=== PATIENT | female | born 1965 | race Caucasian/White ===

== ENCOUNTER → 2016-11-01 | Outpatient (CLI) | payer BC ==
[2015-12-18 08:41] VITALS: BP 112/72
[~2016-11-01] MED LIST: LYSI500T PO; MULT-208 PO; VITA1000 PO
--- NOTE | 2016-11-01 16:46 | KCIC ---
PROCEDURE MR of the left shoulder HISTORY Left shoulder pain for 1 month. No known injury. COMPARISON None TECHNIQUE Routine multiplanar sequences are obtained. FINDINGS The acromioclavicular joint is mildly degenerative. 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 The rotator cuff demonstrates some increased signal and thickening compatible with tendinosis. Trace subdeltoid bursal fluid. Trace glenohumeral joint fluid. There is a tear of the superior labrum. No acute articular cartilage defect. Biceps tendinosis, without rupture or dislocation. No bone lesion or acute fracture. No acute soft tissue injury. IMPRESSION 1. Rotator cuff tendinosis without evidence of a tear. 2. Superior labral tear. 3. Biceps tendinosis. Electronically signed by: Jayro Florence MD (Nov 01, 2016 16:44:37)
== END | disposition home or self-care (01) ==
LOC: KCIC MRI 15:06
PROVIDERS: ATTEND Family Medicine
DX: S43.432A Superior glenoid labrum lesion of left shoulder, initial encounter (principal); X58.XXXA Exposure to other specified factors, initial encounter; Y93.89 Activity, other specified; Y92.89 Other specified places as the place of occurrence of the external cause; Y99.8 Other external cause status
CPT/HCPCS: 73221

== ENCOUNTER → 2019-12-24 | Outpatient (CLI) | payer BC ==
[2015-12-18 08:41] VITALS: BP 112/72
[~2019-12-24] MED LIST changes: +IBUP-1027 PO; -LYSI500T PO; +LYSI500T8 PO; +VITA400T6 PO
--- NOTE | 2019-12-24 14:05 | EKG ---
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
[2019-12-24 14:06] LABS: BASO # 0.1 x10^3/uL (0.0-0.2); BASO % 1 % (0-3); EOS # 0.2 x10^3/uL (0.0-0.7); EOS % 3 % (0-3); HEMATOCRIT 40.5 % (36.0-47.0); HEMOGLOBIN 14.2 g/dL (12.0-15.5); LYMPH # 1.8 x10^3/uL (1.0-4.8); LYMPH % 24 % (24-48); MEAN CORPUSCULAR HEMOGLOBIN 29 pg (25-35); MEAN CORPUSCULAR HGB CONC 35 g/dL (31-37); MEAN CORPUSCULAR VOLUME 83 fL (79-100); MONO # 0.5 x10^3/uL (0.0-1.1); MONO % 7 % (0-9); NEUT % 65 % (31-73); PLATELET COUNT 278 x10^3/uL (140-400); RED BLOOD COUNT 4.87 x10^6/uL (3.50-5.40); RED CELL DISTRIBUTION WIDTH 13.7 % (11.5-14.5); WHITE BLOOD COUNT 7.6 x10^3/uL (4.0-11.0)
[2019-12-24 14:15] LABS: PROTHROMBIN TIME PATIENT 13.7 SEC (11.7-14.0)
[2019-12-24 14:20] LABS: C-REACTIVE PROTEIN 3.1 mg/L (0-3.3); CALCIUM 8.9 mg/dL (8.5-10.1); CREATININE 0.9 mg/dL (0.6-1.0); POTASSIUM 4.2 mmol/L (3.5-5.1)
--- NOTE | 2019-12-24 15:34 | RAD ---
CHEST PA LATERAL History: Reason: pre-op evaluation / Spl. Instructions: / History: Comparison: 12/08/2015 2 view chest x-ray exam. Findings: Frontal and lateral views of the chest were obtained. The cardiomediastinal silhouette is normal. Pulmonary vasculature is normal. The lungs are clear. No pleural effusion or pneumothorax is seen. There is no acute bone abnormality. Lumbar spine fusion braydon and screws are only partially seen for purposes of this exam. Degenerative disc space narrowing of the upper lumbar spine is seen. IMPRESSION: No acute cardiopulmonary process. Electronically signed by: Telly Montano MD (12/24/2019 3:31 PM) [id number]
[2019-12-25 02:08] LABS: HEMOGLOBIN A1C 5.3 % (4.8-5.6)
== END | disposition home or self-care (01) ==
LOC: SURGPAT 12:52
PROVIDERS: ATTEND Orthopaedic Surgery Sports Medicine
DX: Z01.818 Encounter for other preprocedural examination (principal); M17.12 Unilateral primary osteoarthritis, left knee; M43.26 Fusion of spine, lumbar region; M51.36 Other intervertebral disc degeneration, lumbar region; M48.061 Spinal stenosis, lumbar region without neurogenic claudication; I44.4 Left anterior fascicular block
CPT/HCPCS: 36415; 71046; 80048; 82040; 82306; 83036; 85025; 85610; 85730; 86140; 87641; 93005

== ENCOUNTER → 2020-01-09 | Outpatient (CLI) | payer BC ==
[2015-12-18 08:41] VITALS: BP 112/72
== END | disposition home or self-care (01) ==
LOC: LAB 13:34
PROVIDERS: ATTEND Orthopaedic Surgery Sports Medicine
DX: Z11.59 Encounter for screening for other viral diseases (principal)
CPT/HCPCS: U0003-CS

== ENCOUNTER 2020-01-13 06:05 | Observation (INO) | payer BC ==
[2020-01-13] VITALS (8 sets, daily range): BP systolic 109–153; BP diastolic 50–81
[~2020-01-13] VITALS: Ht 160 cm; Wt 100.2 kg
[~2020-01-13 06:05] MED LIST changes: +ACETAMINOPHEN 500 MG TABLET PO PRN; +MELOXICAM 7.5 MG TABLET PO PRN; +SCOPOLAMINE 1.5MG PATCH. TD PRN; +TRANEXAMIC ACID 1,000 MG in IV NS 50ML -- 1ST BAG INJ ONE; +TV=100ml MORPHINE 5 MG, KETOROLAC 30 MG, ROPIVacaine 0.5% PF 60 ML, EPINEPH... INT ART ONE
[2020-01-13] MEDS ORDERED: ceFAZolin SODIUM 3 GM in IV DEXTROSE 5% 100ML 100 ML IV PRN (06:30)
[2020-01-13] MEDS ORDERED: IV NORMAL SALINE 1000ML BAG 1,000 ML IV SCH (06:51)
[2020-01-13] MEDS ORDERED: LIDOCAINE 1% PF 2 ML VIAL. ID PRN (07:00)
[2020-01-13] MEDS ORDERED: 0.9 % SODIUM CHLORIDE 10 ML DISP.SYRIN. IV PRN (07:00)
[2020-01-13] MEDS ORDERED: fentaNYL PF VIAL 100 MCG/2 ML VIAL IV PRN ×2 (07:00)
[2020-01-13] MEDS ORDERED: CALCIUM CARBONATE 500 MG TAB.CHEW PO PRN (07:00)
[2020-01-13] MEDS ORDERED: MORPHINE SULFATE 2 MG/ML VIAL. IVP PRN (07:00)
[2020-01-13] MEDS ORDERED: PROCHLORPERAZINE 5 MG TABLET. PO PRN (07:00)
[2020-01-13] MEDS ORDERED: diphenhydrAMINE 50 MG/ML VIAL IVP PRN (07:00)
[2020-01-13] MEDS ORDERED: DEXTROSE 50% 25 GM / 50ML DISP.SYRIN. IV PRN (07:00)
[2020-01-13] MEDS ORDERED: METOCLOPRAMIDE HCL 10 MG/2 ML VIAL. IVP PRN (07:00)
[2020-01-13] MEDS ORDERED: PROCHLORPERAZINE 10 MG/2 ML VIAL. IV PRN (07:00)
[2020-01-13] MEDS ORDERED: fentaNYL PF VIAL 100 MCG/2 ML VIAL IVP PRN (07:00)
[2020-01-13] MEDS ORDERED: ONDANSETRON PF 4 MG/2 ML VIAL. IV PRN (07:00)
[2020-01-13] MEDS ORDERED: MORPHINE SULFATE 2 MG/ML VIAL. IV PRN (07:00)
[2020-01-13] MEDS ORDERED: IV RINGERS,LACTATED 1000ML 1,000 ML IV SCH (07:00)
[2020-01-13] MEDS ORDERED: HYDROmorphone 2 MG/ML VIAL IV PRN (07:00)
[2020-01-13] MEDS ORDERED: ZOLPIDEM 5 MG TABLET. PO PRN (07:00)
[2020-01-13] MEDS ORDERED: PROPOFOL 10 MG/ML (20ML) VIAL. IV ONE ×2 (07:08→08:04)
[2020-01-13] MEDS ORDERED: LIDOCAINE 2% PF 5 ML VIAL. ONE (07:08)
[2020-01-13 07:13] LABS: PROTHROMBIN TIME PATIENT 13.6 SEC (11.7-14.0)
[2020-01-13] MEDS ORDERED: fentaNYL PF VIAL 250 MCG/5 ML VIAL ONE (07:20)
[2020-01-13] MEDS ORDERED: MIDAZOLAM HCL/PF 2 MG/2 ML VIAL. ONE (07:20)
[2020-01-13] MEDS ORDERED: VANCOMYCIN 1GM IVPB FOR OMNI 250 ML ONE (07:22)
[2020-01-13] MEDS ORDERED: VANCOMYCIN 1GM IVPB FOR OMNI 250 ML IV PRN (07:30)
[2020-01-13] MEDS ORDERED: SCOPOLAMINE 1.5MG PATCH. TD ONE (07:30)
[2020-01-13] MEDS ORDERED: PHENYLEPHRINE in 0.9% NACL PF 1 MG/10 ML SYRINGE. IV ONE (07:41)
[2020-01-13] MEDS ORDERED: TRANEXAMIC ACID 1,000 MG in IV NS 50ML -- 2ND BAG INJ ONE (08:00)
[2020-01-13] MEDS: FERROUS SULFATE 325 MG TABLET. PO SCH ×2 (08:00→17:15)
[2020-01-13] MEDS ORDERED: DEXAMETHASONE SOD PHOS 4 MG/ML VIAL ONE (08:04)
[2020-01-13] MEDS ORDERED: ONDANSETRON PF 4 MG/2 ML VIAL. ONE (08:04)
[2020-01-13] MEDS ORDERED: SEVOFLURANE > 120 MINUTES. IH ONE (08:04)
[2020-01-13] MEDS: MULTIVITAMIN with MINERAL TABLET. PO SCH (09:00)
[2020-01-13] MEDS: SENNOSIDES/DOCUSATE 8.6/50MG TABLET. PO SCH (09:00)
--- NOTE | 2020-01-13 10:20 | PDOC4 ---
Operative Note Operative Note Date of procedure: 01/13/2020 Surgeon: aDnie Meza Industrial Refrigeration Mechanic: Jaspreet Serrano, certified medicine aide Preoperative diagnosis: Primary left knee degenerative joint disease Postoperative diagnosis: Same Procedure performed: 1. Robotic assisted left total knee arthroplasty 2. Removal of deep hardware Anesthesia: General Findings: Advanced degenerative joint disease of left knee Complications: none Tourniquet time: 78min Blood loss: 125mL Components inserted: [employer] Oxinium size 4 left journey II femur with a 23 mm biconvex patella, 9 mm articular insert, size 3 left journey nonporous tibial baseplate Reason for procedure: Patient is a very pleasant female who have been following for quite some time of my outpatient clinic. She had tried and failed an exercise program, working on weight loss, intra-articular injections, and none of these really helped her pain. She has also tried anti-inflammatories. Because of her progressive pain interfering with her activities, we discussed proceeding with a robotic left total knee arthroplasty and she wished to pro ceed. Description of procedure: Patient was greeted in the preoperative area by myself or the correct extremity was verified and marked. She was taken to the operative suite and antibiotics were started prior to this. Once in the operating room, she was transferred gently supine to the operating room table and secured to the bed with all pressure points padded and had successful induction of a general anesthetic. My examination under anesthesia demonstrated range of motion 0 to 130 degrees, the knee was stable to varus and valgus in extension and 30 degrees of flexion. We applied a nonsterile tourniquet to her left upper thigh. A padded bump was placed laterally at her hip and a padded foot rest was secured to the bed to maintain her knee at 90 degrees passively. We then proceeded prep and drape left lower extremity in her usual sterile fashion including an Ioban sandwich. We then conducted our standard preoperative timeout. I then rafael a line for my planned skin incision, exsanguinated the extremity with an Esmarch and insufflated tourniquet to 250 mmHg. After this, the skin was incised with a scalpel, incorporating her prior incision, and I dissected subcutaneous tissue to expose the extensor mechanism with electrocautery, cauterizing bleeders as they were encountered. After this, I palpated for her borders of her patella as well as tibial tubercle and then made my medial parapatellar arthrotomy and then bluntly dissected the fat pad off the posterior aspect of the patellar tendon and protected the patellar tendon with an Army-Dahlgren retractor while I excised the fat pad. I then flexed the knee, and excised the cruciate ligaments. Due to their position and interference with my total knee, I removed the screws that had been used for her ACL fixation. After this, I took down some osteophytes and then placed my pins for my tibial and femoral tracking devices. After this, we began her data collection for the robotic portion of the procedure including range of motion, knee stability and then I painted the surfaces with the pointer. The femoral and tibial markers had been placed. At this point, the computer shutdown and quit working. The pins were removed as were the markers. I gained entry to her distal femur with a drill and placed by long intramedullary guide and pinned this block in a position at the +0 position and made my distal femoral cut. I then sized for my femur and placed 2 pin holes and I impacted my 5 in 1 cutting block in position and secured it with 2 threaded pins. I then made my distal femoral cuts and delivered the cutting guide and loose bony pieces from the operative field. I made sure to remove any osteophytes posteriorly. After this, I repositioned the knee, added a posterior retractor and reposition my Z retractors to protect the collaterals. I then used an extra medullary tibial cutting guide and pinned my proximal tibial cutting block into position and made my proximal tibial cut, delivering the bony remnant from the operative field of circumferentially electrocautery. The leg was brought up into extension and the menisci were excised, leaving a rim peripherally for later identification if needed. After this, we repositioned the knee, and I sized and checked the position for my tibial component, referencing the medial third of her tibial tubercle. This was then pinned into position and drilled. After this, I impacted my femoral trial and position secured with the pin and then reamed and punched for the cam portion. I then introduced a trial polyethylene articular insert and took the knee through range of motion and stability and was satisfied. Her knee was stable to varus and valgus in extension mid flexion range of motion was 0-1 40. We then directed our attention to the patella. I sized and reamed for the above size. With all trial components in place, she had excellent range of motion and patellar tracking. We then removed all trial components and thoroughly irrigated all bony surfaces followed by impacting the tibial baseplate in position, taking care to excess cement. I then impacted the femoral component position again removing excess cement. We then placed our trial polyethylene articular insert, the cement was allowed polymerized with the leg in extension and again I inspected and removed any loose cement. We then secured and clamped our patellar button in a place with cement as well. While the cement was polymerizing, I injected my local anesthetic mixture into the deirdre-incisional soft tissues and around the knee. After cement hardened, range of motion was 0 to 140 degrees, knee was stable to varus and valgus in extension and mid flexion. Patellar tracking was excellent. We then remove the trial articular insert, thoroughly irrigated the knee and placed our polyethylene articular insert, ensuring that it was fully seated and locked. After this, the tourniquet was let down, bleeders were cauterized. A 1/8 inch Hemovac was placed exiting superolaterally from her knee. I then closed arthrotomy with simple interrupted #1 Vicryl, with an exception of a [id number] proximally. Inverted interrupted 2-0 Vicryl in a multilayered fashion was used for subcutaneous tissue. Running 3-0 Monocryl in buried subcuticular fashion was used for skin. Prior to wound closure, all counts correct x2. No complications. We then cleansed and dried the leg and applied her incisional wound VAC followed by the rest of her dressing. Patient tolerated surgery well. No complications. The inclusion she was taken to the PACU in a stable and extubated condition. Postoperative plan is to admit her to the joint center for care and observation, she received DVT and antibiotic prophylaxis. DANIE MEZA II, MD Jan 13, 2020 10:20
[2020-01-13] MEDS ORDERED: fentaNYL PF VIAL 100 MCG/2 ML VIAL ONE (10:25)
--- NOTE | 2020-01-13 10:49 | RAD ---
Examination: KNEE LEFT 2V History: Reason: POST OP / Spl. Instructions: / History: Comparison/Correlation: 06/27/2019 AP view of the knees Findings: Frontal and lateral views of the left knee were obtained. Total left knee joint arthroplasty is present. Soft tissue gas is present. Gas within the left knee joint capsule noted. Drainage catheter tubing is noted overlying at the patellofemoral compartment. No fracture or bone destruction. There is a screw obliquely oriented involving the lateral femoral condyle. Impression: Total left knee joint arthroplasty. No suspicious findings on this immediate postoperative exam. Electronically signed by: Telly Montano MD (01/13/2020 10:46 AM) [id number]
--- NOTE | 2020-01-13 11:10 | NUR ---
Rec'd from PACU per bed, alert/drowsy, states discomfort level 8/10, outer wrap clean, dry & intact with Hemovac collapsed, IVF infusing into left hand, see admission, oriented to surroundings, call light in reach, spouse at bedside
[2020-01-13] MEDS: ONDANSETRON ODT 4 MG TAB.RAPDIS. PO SCH ×2 (12:00→18:00)
[2020-01-13] MEDS: ONDANSETRON PF 4 MG/2 ML VIAL. IVP SCH ×2 (12:00→17:15)
[2020-01-13] MEDS ORDERED: WARFARIN 7.5 MG TABLET. PO ONE (16:00)
--- NOTE | 2020-01-13 19:48 | NUR ---
Held oral Zofran gave IVP
[2020-01-13] MEDS ORDERED: VANCOMYCIN 1 GM in IV NORMAL SALINE 250ML 250 ML IV ONE (20:00)
[2020-01-13] MEDS: oxyCODONE IR 5 MG TABLET PO PRN (22:52)
[2020-01-14] MEDS: ONDANSETRON ODT 4 MG TAB.RAPDIS. PO SCH ×2 (00:06→06:00)
[2020-01-14 02:41] VITALS: BP 140/61
[2020-01-14 05:36] LABS: HEMATOCRIT 32.8 % (36.0-47.0); HEMOGLOBIN 11.4 g/dL (12.0-15.5)
[2020-01-14] MEDS: traMADol 50 MG TABLET PO SCH ×2 (05:41→12:15)
[2020-01-14 05:42] LABS: PROTHROMBIN TIME PATIENT 17.3 SEC (11.7-14.0)
[2020-01-14] MEDS: ONDANSETRON PF 4 MG/2 ML VIAL. IVP SCH ×2 (06:00)
[2020-01-14] MEDS ORDERED: MAGNESIUM HYDROXIDE 2,400 MG/30 ML ORAL.SUSP. PO PRN (06:00)
[2020-01-14 07:00] VITALS: BP 110/39
--- NOTE | 2020-01-14 08:22 | PDOC ---
ORTHO PROGRESS NOTES Subjective She feels like her pain is currently tolerable, although she did just receive a pain medicine. No other complaints or concerns this morning. Vitals Vital Signs Date Time Temp Pulse Resp B/P (MAP) Pulse Ox O2 Delivery O2 Flow Rate FiO2 01/14/20 07:00 97.8 88 16 110/39 (62) 99 Room Air 97.8 01/13/20 11:49 3.0 Labs Laboratory Tests Test 01/13/20 06:37 01/14/20 04:00 Prothrombin Time 13.6 SEC (11.7-14.0) 17.3 SEC (11.7-14.0) Prothromb Time International Ratio 1.1 (0.8-1.1) 1.5 (0.8-1.1) Activated Partial Thromboplast Time 27 SEC (24-38) Hemoglobin 11.4 g/dL (12.0-15.5) Hematocrit 32.8 % (36.0-47.0) Mean Corpuscular Hemoglobin Concent 35 g/dL (31-37) Laboratory Tests Test 01/14/20 04:00 Hemoglobin 11.4 g/dL (12.0-15.5) Hematocrit 32.8 % (36.0-47.0) Mean Corpuscular Hemoglobin Concent 35 g/dL (31-37) Prothrombin Time 17.3 SEC (11.7-14.0) Prothromb Time International Ratio 1.5 (0.8-1.1) Notes She is awake and alert and lying in bed. Drain is in place. Normal motor and sensation are present in her left lower extremity. Incisional wound VAC is in place without any drainage. Assessment and Plan PT and OT, DVT and antibiotic prophylaxis today. We will see how she does with PT today, she may be able to be discharged later today. VASU MEZA II, MD Jan 14, 2020 08:22
[2020-01-14] MEDS: FERROUS SULFATE 325 MG TABLET. PO SCH (08:51)
[2020-01-14] MEDS: ACETAMINOPHEN 500 MG TABLET PO SCH ×2 (08:51→15:09)
[2020-01-14] MEDS: MULTIVITAMIN with MINERAL TABLET. PO SCH (08:51)
[2020-01-14] MEDS: SENNOSIDES/DOCUSATE 8.6/50MG TABLET. PO SCH (08:52)
[2020-01-14] MEDS ORDERED: MELOXICAM 7.5 MG TABLET PO SCH (09:00)
[2020-01-14] MEDS: oxyCODONE IR 5 MG TABLET PO PRN ×2 (09:56→15:09)
[2020-01-14] MEDS ORDERED: ONDANSETRON PF 4 MG/2 ML VIAL. IVP PRN (12:00)
[2020-01-14] MEDS ORDERED: ONDANSETRON ODT 4 MG TAB.RAPDIS. PO PRN (12:00)
--- NOTE | 2020-01-14 12:49 | DISCH ---
DISCHARGE INSTRUCTIONS Condition on Discharge Condition on Discharge: Stable Activity After Discharge Activity Instructions for Disc: Activity as tolerated Bathing Instructions: Shower-keep dressing dry Lifting Instructions after Dis: No heavy lifting, No pulling or pushing, Do not lift >10 pounds Exercise Instruction after Dis: Exercise per therapy, Progress as tolerated Driving Instructions after Dis: Do not drive Weight Bearing Status after Di: As tolerated Diet after Discharge Diet after Discharge: Regular Wound Incision Care Wound/Incision Care: Ice to area for comfort, Keep wound/cast CDI, Do not change dressing Community/Resources/Services Services at Discharge: Home Health Care Services Contacting the [facility] after DC Call your doctor for: Concerns you may have Follow-Up Follow Up With: Dr. Meza [phone] as scheduled Treatment/Equipment after DC Adaptive Equipment Issued: None Warfarin Follow-Up Warfarin Follow UP: per pharmacy VASU MEZA II, MD Jan 14, 2020 12:49
--- NOTE | 2020-01-14 13:35 | SNU/HH DC ---
DISCHARGE WITH HOME HEALTH DISCHARGE INFORMATION: Discharge Date: Jan 14, 2020 Final Diagnosis: Advanced primary left knee degenerative joint disease, status post arthroplasty Condition on Discharge: Stable CODE STATUS: Code Status: Full HOME HEALTH: Face to Face: I certify this patient is under my care and that I, or a nurse practitioner or physician's healthcare administrative assistant working with me, had a face to face encounter that meets the physician face to face encounter requirements with this patient on []. Medical Complications: S/P Joint Replacement Custodial For: Admin/Educate Injections, Assess & Educate Safety RN For Eval/Treatment: Yes Physical Therapy For: Evalulation/Treatment Occupational Therapy For: Evaluation/Treatment Pt Meets Homebound Status: Poor coordination w/ amb., Unsteady balance w/ amb, POST DISCHARGE ORDERS: Activity Instructions for Disc: Activity as tolerated Weight Bearing Status after Di: As tolerated Bathing Instructions: Shower-keep dressing dry Wound/Incision Care: Ice to area for comfort, Keep wound/cast CDI, Do not change dressing FOLLOW-UP: Follow Up With: Dr. Meza [phone] as scheduled Warfarin Follow UP: per pharmacy TREATMENT/EQUIPMENT ORDERS: Adaptive Equipment Issued: None CERTIFICATION STATEMENT: Certification Statement: Certification Statement: Based on the above finding, I certify that this patient is confined to the home and needs intermittent jail care, physical therapy and/or speech therapy, or continues to need occupational therapy.~ This patient is under my care, and I have initiated the establishment of the plan of care.~ This patient will be followed by myself or a community physician who will periodically review the plan of care. Home Meds Reported Medications Ibuprofen (IBUPROFEN) 400 Mg Tablet, 400 MG PO PRN Q6HRS PRN for INFLAMMATION, TAB 12/24/19 Vitamin E Mixed (VITAMIN E) 400 Unit Tablet, 180 UNIT PO DAILY for skin care, TAB 12/24/19 Lysine (L-LYSINE) 500 Mg Tablet, 500 MG PO DAILY for cold sores 12/08/15 Multivitamin (MULTI-DAY VITAMINS) 1 Each Tablet, 1 TAB PO DAILY, #30 TAB 12/08/15 VASU MEZA II, MD Jan 14, 2020 13:35
[2020-01-14 15:00] VITALS: BP 115/54
--- NOTE | 2020-01-14 15:52 | NUR ---
Discharge instructions given to pt with supplies-RY hose, ice bag & tape, see instruction sheets for details, awaiting spouses arrival for walker check, will continue to observe
[2020-01-14] MEDS ORDERED: BISACODYL 10 MG SUPP.RECT. PR PRN (16:00)
[2020-01-14] MEDS ORDERED: WARFARIN 3 MG TABLET. PO ONE (16:00)
--- NOTE | 2020-01-14 16:05 | NUR ---
Discharged to home accompanied by spouse, see instruction sheet for details, belongings taken with her
--- NOTE | 2020-01-14 17:06 | PATHOLOGY ---
[facility] Accession Number: [id number] . 01 Material submitted: . knee - LEFT KNEE BONE AND TISSUE. Modifiers: left . 01 Clinical history: . Left knee DJD; OA . 02 Diagnosis: Segments of bone and soft tissue, left total knee arthroplasty: - Focally advanced degenerative arthritis. (JPM:[facility] 01/14/2020) QTP 01/14/2020 1516 Local . 02 Electronically signed: . Jose Romero MD, Pathologist NPI- [id number] . 01 Gross description: . The specimen is received in formalin, labeled "Estefany Peoples, left knee bone and tissue". Received are multiple segments of bone, including the tibial plateau, admixed with soft tissue measuring 10.7 x 7.6 x 2.2 cm in aggregate dimensions. Meniscus is absent. The articular surfaces are smooth to granular in appearance with minimal evidence of eburnation. The specimen is submitted representatively in cassette A1, following decalcification. (CAA; 01/13/2020) QA/[facility] 01/13/2020 1623 Local . 02 Pathologist provided ICD-10: M17.12 . 02 CPT . 014038, [id number] Specimen Comment: A courtesy copy of this report has been sent to [phone], [phone] Specimen Comment: [id number] Specimen Comment: Report sent to / DR CORTES Performed at: 01 [facility] [address], [place] [id number] MD Kenton Jefferson MD Phone: [phone] Performed at: 02 [facility] [address] [place], [place] [id number] MD Jose Romero MD Phone: [phone]
--- NOTE | 2020-01-16 08:30 | PDOC3 ---
Discharge Summary Visit Information Date of Admission: Jan 13, 2020 Date of Discharge: Jan 14, 2020 Admitting Diagnosis: Advanced primary left knee degenerative joint disease Brief Hospital Course Allergies Allergies Coded Allergies Type Severity Reaction Last Updated Verified Penicillins Allergy Intermediate 01/13/20 Yes Brief Hospital Course Ms. Peoples is a 54 old female who presented with progressive left knee pain. She had a history of an ACL reconstruction remotely. Her knee pain was starting to interfere with her activities daily living and recreational activities. We had tried conservative therapies including anti-inflammatories, exercise program, and injections. These were no longer efficacious so we discussed proceeding with surgery and she elected to proceed. She tolerated surgery well and recovered well from anesthesia in the PACU. Her hospital course was essentially uneventful. Her pain was controlled on oral pain medicine at the time of discharge. She was maintaining her ADLs fairly well. She had made good progress with PT and OT and was ambulating with an assistive device. She was hemodynamically stable and afebrile throughout her hospitalization. Tolerating regular diet. Normal bowel and bladder function were present. Discharge Information Condition at Discharge: Stable Follow Up: Weeks Disposition/Orders: D/C to Home w/ HH Scheduled Lysine (L-Lysine) 500 Mg Tablet, 500 MG PO DAILY for cold sores, (Reported) Entered as Reported by: ANNAMARIA PALACIOS on 12/08/15 1432 Last Taken: Unknown Dose on 01/03/20 Last Action: HELD on 01/13/20654 by SYLVIA MEZA MD Multivitamin (Multi-Day Vitamins) 1 Each Tablet, 1 TAB PO DAILY, #30 (Reported) Entered as Reported by: ANNAMARIA PALACIOS on 12/08/15 1431 Last Taken: Unknown Dose on 01/03/20 Last Action: HELD on 01/13/20654 by SYLVIA MEZA MD Vitamin E Mixed (Vitamin E) 400 Unit Tablet, 180 UNIT PO DAILY for skin care, (Reported) Entered as Reported by: SALMA CASTILLO on 12/24/19 1324 Last Taken: Unknown Dose on 01/03/20 Last Action: HELD on 01/13/20654 by SYLVIA MEZA MD Scheduled PRN Ibuprofen (Ibuprofen) 400 Mg Tablet, 400 MG PO PRN Q6HRS PRN for INFLAMMATION, (Reported) Entered as Reported by: SALMA CASTILLO on 12/24/19 1324 Last Taken: Unknown Dose on 01/03/20 Last Action: Last Taken Edited on 01/13/20 0649 by TAMI STEEL Patient Instructions Patient Instructions She will be discharged home with home health. Coumadin for a month. Weight- bear as tolerated. She will receive PT and OT as well at home. We will transition her to outpatient PT when home health care is done working with her. She will follow-up in 2 weeks, sooner should a problem arise Justicifation of Admission Dx: Justifications for Admission: Justification of Admission Dx: N/A VASU MEZA II, MD Jan 16, 2020 08:30
== END 2020-01-14 16:05 | disposition home health service (06) ==
LOC: SURG 06:05 → EDSTATUS 07:30 → 4 NORTH 10:34
PROVIDERS: ADMIT Orthopaedic Surgery Sports Medicine; ATTEND Orthopaedic Surgery Sports Medicine
DX: M17.12 Unilateral primary osteoarthritis, left knee (principal)
CPT/HCPCS: 27447; 36415; 73560; 85014; 85018; 85610; 85730; 86850; 86900; 86901; 88305; 88311; 96374; 96375; 97110; 97116; 97161; 97166; 97530; 97535; A7015; C1713; G0378; G0379; J0171; J1100; J1885; J2250; J2270; J2370; J2405; J2704; J2795; J3010; J3370; J3490; J7030; J7050; J7120; C1769